=== PATIENT | male | born 1980 | race African-American/Black ===

== ENCOUNTER 2018-09-24 13:10 | Emergency (ER) | payer SELFPAY ==
[~2018-09-24] VITALS: Ht 194.3 cm; Wt 77.1 kg
[2018-09-24 13:30] VITALS: BP 138/74
--- NOTE | 2018-09-24 13:50 | PHYS DOC ---
Adult General Chief Complaint Chief Complaint: LACERATION/AVULSION HPI HPI 38-year-old male presents to ER for complaints of left middle finger laceration which occurred last night at 7 PM. Patient reports he was trying to lift something when his finger caught the railing on the chair causing the cut to the end of his left middle finger. Patient states he rinsed the wound thoroughly last night and then brought [id number] skin adhesive and put on the wound. He reports the wound did not closed with adhesive so he came to the ER today for evaluation. She is up-to-date on tetanus within the past 5 years. Patient is right hand dominant. Review of Systems Review of Systems Musculoskeletal: Integument: Reports laceration All other systems were reviewed and found to be within normal limits, except as documented in this note. Allergies Allergies Allergies Coded Allergies Type Severity Reaction Last Updated Verified No Known Drug Allergies 09/24/18 No Physical Exam Physical Exam Constitutional: Well developed, well nourished, no acute distress, non-toxic appearance. [] HENT: Normocephalic, atraumatic, oropharynx moist, nose normal. [] Eyes: Pupils equal, conjunctiva normal, no discharge. [] Neck: Normal range of motion, supple, no stridor. [] Cardiovascular: Heart rate regular Lungs & Thorax: Resp. equal/nonlabored Skin: Warm, dry, no erythema, no rash. [] Extremities: No clubbing, ROM intact, no edema. [] Neurologic: Alert and oriented X 3, normal motor function, normal sensory function, no focal deficits noted. [] Psychologic: Affect normal, judgement normal, mood normal. [] Current Patient Data Vital Signs Vital Signs Date Time Temp Pulse Resp B/P (MAP) Pulse Ox O2 Delivery O2 Flow Rate FiO2 09/24/18 13:30 97.9 71 16 138/74 (95) 98 Room Air 97.9 EKG EKG [] Radiology/Procedures Radiology/Procedures [] Course & Med Decision Making Course & Med Decision Making Patient was evaluated in the ER for complaints of laceration which occurred yesterday around 7 PM. Patient and clean the wound yesterday after the incident and wound does not appear infected. Home wound care discussion was had with patient. Will have wound re-cleaned and have dressing and aluminum splint placed for wound protection. Patient advised on signs and symptoms to return to ER for. Home discharge instructions were discussed and patient to follow-up with his primary care physician with any concerns. [] Dragon Disclaimer Dragon Disclaimer This electronic medical record was generated, in whole or in part, using a voice recognition dictation system. Departure Departure Impression: Primary Impression: Laceration Disposition: HOME, SELF-CARE Condition: STABLE Referrals: NO PCP (PCP) Patient Instructions: Laceration Care, Adult, Wound Care, [id number] Additional Instructions: Keep wound dry and clean. Monitor for signs of infection and follow-up with your primary care physician with any concerns. Wear the aluminum splint to protect the wound but you should remove the splint daily multiple times and monitor site. Tylenol and/or ibuprofen as needed for pain as directed on container. MATHEUS VILLAGRAN FISCAL MANAGER Sep 24, 2018 13:50
== END 2018-09-24 14:10 | disposition home or self-care (01) ==
LOC: ER 13:10
DX: S61.213A Laceration without foreign body of left middle finger without damage to nail, initial encounter (principal); W26.8XXA Contact with other sharp object(s), not elsewhere classified, initial encounter; Y93.89 Activity, other specified; Y92.89 Other specified places as the place of occurrence of the external cause; Y99.8 Other external cause status
CPT/HCPCS: 29130; 99283